=== PATIENT | female | born 1980 | race Caucasian/White ===

== ENCOUNTER 2024-07-12 12:44 | Inpatient (IN) | payer BC ==
[2024-07-12] MEDS ORDERED: MAG HYDROX/AL HYDROX/SIMETH 355 ML BOTTLE PO PRN (14:01)
[2024-07-12] MEDS ORDERED: LORazepam 2 MG/ML INJ IM PRN (14:01)
[2024-07-12] MEDS: LORazepam 1 MG TAB PO PRN (21:28)
[2024-07-12] MEDS: IBUPROFEN 600 MG TAB PO PRN (21:28)
[2024-07-12] MEDS: BUPRENORPHINE-NALOX 8-2 MG TAB 1 EACH TAB.SUBL SL SCH (23:30)
[2024-07-12] MEDS: NON FORMULARY DRUG (Buprenorphine-Nalox 8-2 Mg Tab 1 EACH Tablet) SUBLINGUAL SCH (23:38)
[2024-07-13] MEDS ORDERED: CEPHALEXIN 500 MG CAP PO SCH
[2024-07-13] MEDS: CEPHALEXIN 250 MG CAP PO SCH (03:00)
[2024-07-13] MEDS: ACETAMINOPHEN TAB 325 MG TAB PO PRN (03:00)
[2024-07-13] MEDS: NICOTINE 21MG/24HR PATCH TRANSDERM SCH (08:53)
[2024-07-13 09:47] LABS: Basophils % (A) 0 %; Eosinophils # (A) 0.1 k/uL (0-0.7); Eosinophils % (A) 1 %; HCT 44.5 % (34.0-46.0); Lymphocytes # (A) 2.6 k/uL (1.0-4.8); Lymphocytes % (A) 17 %; MCH 26.3 pg (25.0-35.0); MCHC 31.6 g/dL (31.0-37.0); MCV 83.3 fL (80.0-100.0); Mean Platelet Volume 7.1; Monocytes # (A) 0.5 k/uL (0-1.0); Monocytes % (A) 4 %; Neutrophils # (A) 11.5 k/uL (1.3-7.7); Neutrophils % (A) 77 %; Platelet Count 405 k/uL (150-450); RBC 5.34 m/uL (3.80-5.40); RDW 13.9 % (11.5-15.5); WBC 14.9 k/uL (3.8-10.6)
[2024-07-13 09:55] LABS: ALT 17 U/L (4-34); AST 21 U/L (14-36); African American GFR (CKD) >90 (>60 ml/min/1.73 sqM); Albumin 4.4 g/dL (3.5-5.0); Alkaline Phosphatase 61 U/L (38-126); Anion Gap 14 mmol/L; Bilirubin, Delta 0.1 mg/dL (0.0-0.2); Bilirubin,Unconjugated 0.4 mg/dL (0.0-1.1); Blood Urea Nitrogen 8 mg/dL (7-17); Calcium 9.2 mg/dL (8.4-10.2); Carbon Dioxide 23 mmol/L (22-30); Chloride 101 mmol/L (98-107); Glucose 164 mg/dL (74-99); Non-African American GFR(CKD) >90 (>60 ml/min/1.73 sqM); Potassium 3.6 mmol/L (3.5-5.1); Sodium 138 mmol/L (137-145); Total Bilirubin 0.5 mg/dL (0.2-1.3); Total Protein 7.3 g/dL (6.3-8.2)
[2024-07-13] MEDS: SERTRALINE 100 MG TAB PO SCH (11:58)
[2024-07-13] MEDS: lamoTRIgine 100 MG TAB PO SCH (11:58)
[2024-07-13] MEDS: NICOTINE GUM (POLACRILEX) 2 MG GUM BUCCAL PRN (11:59)
--- NOTE | 2024-07-13 13:18 | P.HP ---
Psychiatric H&P - . H&P Date: 07/13/24 History & Physical: Allergies Allergy/AdvReac Type Severity Reaction Status Date / Time No Known Allergies Allergy Verified 07/12/24 14:01 Vital Signs Temp 96.8 F L 07/12/24 21:19 Pulse 111 H 07/12/24 21:19 Resp 18 07/12/24 21:19 BP 134/93 07/12/24 21:19 Pulse Ox 98 07/12/24 21:19 FiO2 Intake & Output 07/12/24 07/13/24 07/13/24 18:59 06:59 18:59 Weight 88.64 kg 88.64 kg Laboratory Last Values WBC 14.9 k/uL (3.8-10.6) H 07/13/24 09:07 RBC 5.34 m/uL (3.80-5.40) 07/13/24 09:07 Hgb 14.0 gm/dL (11.4-16.0) 07/13/24 09:07 Hct 44.5 % (34.0-46.0) 07/13/24 09:07 MCV 83.3 fL (80.0-100.0) 07/13/24 09:07 MCH 26.3 pg (25.0-35.0) 07/13/24 09:07 MCHC 31.6 g/dL (31.0-37.0) 07/13/24 09:07 RDW 13.9 % (11.5-15.5) 07/13/24 09:07 Plt Count 405 k/uL (150-450) 07/13/24 09:07 MPV 7.1 07/13/24 09:07 Neutrophils % 77 % 07/13/24 09:07 Lymphocytes % 17 % 07/13/24 09:07 Monocytes % 4 % 07/13/24 09:07 Eosinophils % 1 % 07/13/24 09:07 Basophils % 0 % 07/13/24 09:07 Neutrophils # 11.5 k/uL (1.3-7.7) H 07/13/24 09:07 Lymphocytes # 2.6 k/uL (1.0-4.8) 07/13/24 09:07 Monocytes # 0.5 k/uL (0-1.0) 07/13/24 09:07 Eosinophils # 0.1 k/uL (0-0.7) 07/13/24 09:07 Basophils # 0.0 k/uL (0-0.2) 07/13/24 09:07 Sodium 138 mmol/L (137-145) 07/13/24 09:07 Potassium 3.6 mmol/L (3.5-5.1) 07/13/24 09:07 Chloride 101 mmol/L (98-107) 07/13/24 09:07 Carbon Dioxide 23 mmol/L (22-30) 07/13/24 09:07 Anion Gap 14 mmol/L 07/13/24 09:07 BUN 8 mg/dL (7-17) 07/13/24 09:07 Creatinine 0.64 mg/dL (0.52-1.04) 07/13/24 09:07 Est GFR (CKD-EPI)AfAm >90 (>60 ml/min/1.73 sqM) 07/13/24 09:07 Est GFR (CKD-EPI)NonAf >90 (>60 ml/min/1.73 sqM) 07/13/24 09:07 Glucose 164 mg/dL (74-99) H 07/13/24 09:07 Calcium 9.2 mg/dL (8.4-10.2) 07/13/24 09:07 Total Bilirubin 0.5 mg/dL (0.2-1.3) 07/13/24 09:07 Conjugated Bilirubin 0.0 mg/dL (0.0-0.3) 07/13/24 09:07 Unconjugated Bilirubin 0.4 mg/dL (0.0-1.1) 07/13/24 09:07 Delta Bilirubin 0.1 mg/dL (0.0-0.2) 07/13/24 09:07 AST 21 U/L (14-36) 07/13/24 09:07 ALT 17 U/L (4-34) 07/13/24 09:07 Alkaline Phosphatase 61 U/L (38-126) 07/13/24 09:07 Total Protein 7.3 g/dL (6.3-8.2) 07/13/24 09:07 Albumin 4.4 g/dL (3.5-5.0) 07/13/24 09:07 TSH 1.200 mIU/L (0.465-4.680) 07/13/24 09:07 07/13/24 13:08 IDENTIFYING DATA: Patient is a 43-year-old female, unemployed and living with and 2 children CHIEF COMPLAINT: SI with a plan HPI: Patient presented to the hospital with suicidal ideations. Per EPS, "Patient packet sent from central intake. Patient will be transferred from [facility]. Patient presented to [facility] related to suicidal ideation with suicide attempt to slit her right wrist. Per RN, patient laceration is from arm to elbow and was originally [id number]. Patient has been sutured and has a wrap/splint on her right arm." Patient seen and evaluated on the unit and was agreeable with speaking to personal lines underwriter in office. She states she has been dealing with severe anxiety for the past several months that is worsening to the point where she is not wanting to end her suffering. She describes anxiety as heart palpitations that occur daily and can last up to the entire day that impacts both sleep and appetite. She states she has received workup including EKG for these heart issues however everything has came back normal. In addition to palpitations, she describes dizziness, nausea, feeling weak with no overt triggers however she does fear about having another 1 anytime during the day. She expresses a dissatisfaction with the failed suicide attempt, stating she when she realized she was not going to bleed out she herself contacted the police. She reports in addition to sleep and appetite changes, low energy, poor concentration, anhedonia, racing thoughts and restlessness. She continues to report suicidal ideations, expressing a will to end her suffering. Patient denies any homicidal ideations intent or plan. At this time patient denies any auditory or visual hallucinations. Patient denies any flight of ideas racing thoughts and increased in goal directed behavior. Patient admits to using nicotine daily, last using alcohol 15 years ago and opiates 8 years ago. PAST PSYCHIATRIC HISTORY: Patient has a history of depression, anxiety. She is currently prescribed Zoloft 50 mg daily, Lamictal 100 mg daily. She reports 3 previous inpatient hospitalizations most recent being at [facility] in the fall 2022. She sees Dr. Hernandez at [facility]. She reports 3 previous suicide attempts. PMH: as per ER note ALLERGIES: as per EMR SUBSTANCE USE HISTORY: Patient currently only uses nicotine daily. She does have a history of alcohol and opiate abuse however no longer uses. She denies any cannabis use. FAMILY PSYCHIATRIC/SUBSTANCE USE HISTORY: Patient reports her mother had mental illness and completed suicide 12 years ago. SOCIAL HISTORY: Patient is and has 2 children and lives with her and kids. 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 MENTAL STATUS EXAM: General Appearance: Patient appears to be stated age is alert, directable, and attempts to cooperate. Patient appears to have fair hygiene and grooming. Behavior: Patient is seated without any agitated behavior. She is tearful Speech: Patient's speech is fluent and nonpressured. Mood/Affect: Patient reports their mood is depressed, affect is congruent and constricted. Suicidality/Homicidality: Patient denies having any homicidal ideation intent or plan. She does report suicidal ideations with a plan Perceptions: Patient denies any visual hallucinations and denies any auditory hallucinations Though content/process: There is no evidence of any delusional thought content and thought process is linear. Memory and concentration: AOX3, grossly intact for the purposes of this session. Can spell "WORLD" backwards Judgment and insight: Poor STRENGTHS/WEAKNESSES: strength is that patient is resilient and has a family to care for, no longer use substances. Weakness is that patient has poor judgment and is impulsive INTELLECT: Average IMPRESSIONS: Major depressive disorder, recurrent, severe Panic disorder Generalized anxiety disorder Nicotine dependence Opioid use disorder in remission Alcohol use disorder in remission PLAN: -Patient is admitted under voluntary status to [facility] for stabilization of psychiatric symptoms and safety. Patient has signed adult voluntary form and medication consent and is placed in patient's chart. -Medications : Increase Zoloft to 100 mg daily for depression/anxiety, start Remeron 7.5 mg at bedtime for sleep/appetite/mood, resume Lamictal 100 mg daily for mood stabilization -Ativan and Haldol PRN for agitation/aggression -Patient was informed of the risks, benefits and side effects of the medication and patient verbally consented to taking the medications. Patient signed med consent form and was placed in chart. -Internal Medicine consult to perform medical evaluation and physical. -NRT -nicotine patch -SW on board for discharge planning. Encourage patient to participate in groups to work on coping skills.
[2024-07-13] MEDS: MAGNESIUM HYDROXIDE 2,400 MG/30 ML CUP PO PRN (13:48)
[2024-07-13 15:16] LABS: Chol/HDL Ratio 5.34 Ratio; LDL Cholesterol,Calculated 138.2 mg/dL (0.0-131.0)
[2024-07-13] MEDS: MIRTAZAPINE 15 MG TAB PO SCH (22:05)
--- NOTE | 2024-07-14 14:28 | P.PN ---
Progress Note - Text Progress Note Date: 07/14/24 Interval History: Patient was seen wandering the hallways and was directable and agreeable to sp rayray with specification writer in the office. She expresses up-and-down mood with ongoing severe anxiety. She continues to experience hopelessness regarding to her ongoing suffering but did mention an improvement in terms of sleep and appetite. She continues to express suicidal thoughts, not worsening however not improved. Patient was intermittently tearful, blunted affect noted. She continues to mention palpitations but does mention an improvement in her symptoms with restarting the Zoloft and Lamictal. She has been attending groups, tending to her ADLs. She has concerns about medications causing sedation as she has to care for her 2 children. At this time patient denies any homicidal ideations, intent or plan. Patient denies any auditory, visual hallucinations and denies any paranoia or delusions. Patient denies any side effects from the medications and has been compliant with meds. Mental Status Exam: General Appearance: Patient appears to be stated age is alert, directable, and cooperative. She has a cast on her right arm Behavior: Patient is calmly seated without any agitated behavior. She is intermittently tearful Speech: Patient's speech is fluent and nonpressured. Mood/Affect: Mood is depressed, affect is congruent and blunted. Suicidality/Homicidality: Patient denies having any homicidal ideation intent or plan. Reports suicidal ideations with plan no intent Perceptions: Patient denies any visual hallucinations and denies any auditory hallucinations Though content/process: There is no evidence of any delusional thought content and thought process is linear and logical. Memory and concentration: AOX3, grossly intact for the purposes of this session Judgment and insight: Improving mildly Assessment Major depressive disorder, recurrent, severe Suicide attempt via cutting Panic disorder Generalized anxiety disorder Nicotine dependence Opioid use disorder in remission Alcohol use disorder in remission Plan: -Patient continues to meet criteria for inpatient psychiatric admission for symptom stabilization and safety. Patient has signed adult voluntary form and medication consent and was placed in patient's chart. -Medications: Continue Zoloft 100 mg daily for depression/anxiety, Remeron 7.5 mg at bedtime for sleep/appetite/mood, Lamictal 100 mg daily for mood stabilization, start BuSpar 10 mg twice daily for anxiety -When necessary Ativan and Haldol for agitation/aggression. -Labs: Reviewed -NRT -nicotine patch -SW on board for discharge planning. Encouraged the patient to participate in milieu.
[2024-07-14] MEDS: ONDANSETRON ODT 4 MG TAB PO PRN (18:47)
[2024-07-14] MEDS: busPIRone HCl 10 MG TAB PO SCH (22:04)
[2024-07-15] MEDS: ASPIRIN 81 MG PO SCH (08:09)
[2024-07-15] MEDS: SERTRALINE 50 MG TAB PO SCH (08:09)
[2024-07-15] MEDS: METOPROLOL TARTRATE 50 MG TAB PO SCH (08:09)
--- NOTE | 2024-07-15 10:53 | P.PN ---
Progress Note - Text Progress Note Date: 07/15/24 Interval History: Patient was seen wandering the hallways and was directable and agreeable to sp makk with handbook writer in the office. She continues to attend groups, tending to ADLs. She reports her mood as the same as yesterday however reports feeling a little bit more hopeful today. She does report improvement in terms of her palpitations and panic symptoms however did exhibited some overnight. Patient was motivated to attend counseling once discharged to continue to work through her past trauma and develop better coping skills. Patient does report suicidal ideations today, no plan or intent but does mention she has been actively challenging these thoughts when they arise. At this time patient denies any homicidal ideations, intent or plan. Patient denies any auditory, visual hallucinations and denies any paranoia or delusions. Patient has been compliant with meds, only reporting fatigue. Mental Status Exam: General Appearance: Patient appears to be stated age is alert, directable, and cooperative. She has a cast to her right arm with fair grooming and hygiene Behavior: Patient is calmly seated without any agitated behavior. She is intermittently tearful Speech: Patient's speech is fluent and nonpressured. Mood/Affect: Mood is improving mildly, affect is congruent and blunted. Suicidality/Homicidality: Patient denies having any homicidal ideation intent or plan. She reports suicidal ideations, no plan or intent Perceptions: Patient denies any visual hallucinations and denies any auditory hallucinations Though content/process: There is no evidence of any delusional thought content and thought process is linear and logical. Memory and concentration: AOX3, grossly intact for the purposes of this session Judgment and insight: Improving mildly Assessment Depressive disorder, recurrent, severe Suicide attempt via cutting Panic disorder Generalized anxiety disorder Nicotine dependence Opioid use disorder in remission Alcohol use disorder in remission Plan: -Patient continues to meet criteria for inpatient psychiatric admission for symptom stabilization and safety. Patient has signed adult voluntary form and medication consent and was placed in patient's chart. -Medications: Increase Zoloft to 150 mg daily today for depression/anxiety, continue Remeron 7.5 mg at bedtime for sleep/mood/appetite, Lamictal 100 mg daily for mood stabilization, BuSpar 10 mg twice daily for anxiety -When necessary Ativan and Haldol for agitation/aggression. -Labs: Reviewed -NRT -nicotine patch -SW on board for discharge planning. Encouraged the patient to participate in milieu.
--- NOTE | 2024-07-16 12:11 | P.PN ---
Progress Note - Text Progress Note Date: 07/16/24 Interval History: Patient was seen wandering the hallways and was directable and agreeable to sp rayray with fiction and nonfiction writer prose in the office. She mentions still dealing with moodiness and racing thoughts predominantly at nighttime however does report good sleep overnight. She reports some mild palpitations however does report significant improvement than previous encounters, worse at night. She mentions having some nausea yesterday however Zofran as needed has been helpful. She states her anxiety is down to a 6-7 today. She has been attending groups, tending to her ADLs. She does report suicidal ideations however mentions they are less intense than on admission, no plan or intent. At this time patient denies any homicidal ideations, intent or plan. Patient denies any auditory, visual hallucinations and denies any paranoia or delusions. Patient has been compliant with meds. Spoke to patient's to provide updates and address any unanswered questions. Mental Status Exam: General Appearance: Patient appears to be stated age is alert, directable, and cooperative. She has a cast on her right arm with fair grooming and hygiene Behavior: Patient is calmly seated without any agitated behavior. She is less tearful today Speech: Patient's speech is fluent and nonpressured. Mood/Affect: Mood is improving mildly, affect is congruent and flat. Suicidality/Homicidality: Patient denies having any homicidal ideation intent or plan. She does report suicidal ideations, lessening in severity Perceptions: Patient denies any visual hallucinations and denies any auditory hallucinations Though content/process: There is no evidence of any delusional thought content and thought process is linear and logical. Memory and concentration: AOX3, grossly intact for the purposes of this session Judgment and insight: Improving mildly Assessment Major depressive disorder, recurrent, severe Suicide attempt via cutting Panic disorder Generalized anxiety disorder Nicotine dependence Opioid use disorder in remission Alcohol use disorder in remission Plan: -Patient continues to meet criteria for inpatient psychiatric admission for symptom stabilization and safety. Patient has signed adult voluntary form and medication consent and was placed in patient's chart. -Medications: Increase BuSpar to 20 mg twice daily for anxiety, continue Zoloft 150 mg daily for depression/anxiety, Remeron 7.5 mg at bedtime for sleep/mood/appetite, Lamictal 100 mg daily for mood stabilization -When necessary Ativan and Haldol for agitation/aggression. -Labs: Reviewed -NRT -nicotine patch -SW on board for discharge planning. Encouraged the patient to participate in milieu.
[2024-07-16] MEDS: busPIRone HCl 10 MG TAB PO SCH (22:04)
--- NOTE | 2024-07-17 17:47 | P.PN ---
Subjective Progress Note Date: 07/17/24 Principal diagnosis: depression: Either major depression recurrent nonpsychotic severe or bipolar 2 Interval History: Patient was seen wandering the hallways and was directable and agreeable to speak with marketing copywriter in the office. She mentions still dealing with moodiness and racing thoughts predominantly at nighttime however does report good sleep overnightwhich she ascribes to the low- dose mirtazapine. Mirtazapine has very low cardiac side effects and she had the palpitations prior tothat. She is stillhaving some nausea however Zofran as needed has been helpful. She states her anxiety is down to a 6-7 today. She has been attending groups, tending to her ADLs. She does report suicidal ideations however mentions they are less intense than on admission, no plan or intent. At this time patient denies any homicidal ideations, intent or plan. Patient denies any auditory, visual hallucinations and denies any paranoia or delusions. Patient has been compliant with meds. Spoke to patient's to provide updates and address any unanswered questions. she says that her depression does fluctuate she does not describe any clear manic highs but the depression will come and then go and she is entirely sure why. Mental Status Exam:patient is cooperative good eye contact reasonable response times General Appearance: Patient appears to be stated age is alert, directable, and cooperative. She has a cast on her right arm with fair grooming and hygiene Behavior: Patient is calmly seated without any agitated behavior. She is less tearful today Speech: Patient's speech is fluent and nonpressured. Mood/Affect: Mood is improving mildly, affect is congruent and flat. Suicidality/Homicidality: Patient denies having any homicidal ideation intent or plan. She does report suicidal ideations, lessening in severity Perceptions: Patient denies any visual hallucinations and denies any auditory hallucinations Though content/process: There is no evidence of any delusional thought content and thought process is linear and logical. Memory and concentration: AOX3, grossly intact for the purposes of this session Judgment and insight: Improving mildly Assessment Major depressive disorder, recurrent, severe Suicide attempt via cutting Panic disorder Generalized anxiety disorder Nicotine dependence Opioid use disorder in remission Alcohol use disorder in remission Plan:no change for now but I think she needs to look into this possibility of mood swing more and maybe consider emphasizing the Lamictal backing off of the Zoloft and maybe another mood stabilizer to help with anxiety -Patient continues to meet criteria for inpatient psychiatric admission for symptom stabilization and safety. Patient has signed adult voluntary form and medication consent and was placed in patient's chart. -Medications: Increase BuSpar to 20 mg twice daily for anxiety, continue Zoloft 150 mg daily for depression/anxiety, Remeron 7.5 mg at bedtime for sleep/mood/appetite, Lamictal 100 mg daily for mood stabilization -When necessary Ativan and Haldol for agitation/aggression. -Labs: Reviewed -NRT -nicotine patch -SW on board for discharge planning. Encouraged the patient to participate in milieu. Objective - Vital Signs Vital signs: Vital Signs Temp 97.5 F L 07/17/24 09:18 Pulse 97 07/17/24 09:18 Resp 20 07/17/24 09:18 BP 119/87 07/17/24 09:18 Pulse Ox 98 07/16/24 22:03 FiO2 - Labs CBC & Chem 7: 07/13/24 09:07 07/13/24 09:07
--- NOTE | 2024-07-17 20:26 | P.MDCNMH ---
History of Present Illness H&P Date: 07/14/24 Patient is a 43-year-old female with history of major depressive disorder recurrent severe, panic disorder, generalized anxiety who presented for evaluation of suicidal ideations. Medicine was consulted for medical evaluation. Patient states he has history of palpitations secondary to anxiety for which she takes aspirin and metoprolol regularly. She also attest to having a cold 1 week ago and continues to have mild cough with some sputum production that has improved over time. She also had suicide attempt with laceration to right forearm which was sutured and wrap/splint placed. She denies fever, chest pain, shortness of breath, abdominal pain, weakness, dizziness, dysuria. Patient is afebrile, blood pressure 121/79, pulse 105, O2 saturation 99 % on room air. WBC 14.9, glucose 164, cholesterol 205, LDL 138, HDL 38 Social history: Patient uses tobacco daily. She denies alcohol with 15-year sobriety, and denies drug use with 9 years sobriety. Review of systems: Reviewed, pertinent positive negatives as per HPI Gen: In NAD, non-toxic HEENT: normocephalic, atraumatic, hearing acuity is intact, mucous membranes moist CVS: perfusing all extremities well, no pitting edema Respiratory: symmetric chest expansion, no accessory muscle use, right-sided inspiratory wheeze GI: soft, NTTP, ND : no suprapubic tenderness, no CVA tenderness MSK/Derm: Right forearm casted, no rashes, cyanosis Neuro: CN II-XII intact, no motor weakness Assessment/plan: #Right arm laceration Continue Keflex 250 mg every 6 hours #Recurrent palpitations associated with anxiety Resume home metoprolol and aspirin #Major depressive disorder, recurrent, severe #Panic disorder #Generalized anxiety disorder #Nicotine dependence -Management per primary psychiatry service Thank you for this consult, please reach out if any further questions/concerns. Past Medical History Additional Past Medical History / Comment(s): Tachycardia due to anxiety History of Any Multi-Drug Resistant Organisms: None Reported Past Surgical History: Orthopedic Surgery Additional Past Surgical History / Comment(s): Sx on 5th metacarpal, D&C x 2 post miscarages Past Anesthesia/Blood Transfusion Reactions: No Reported Reaction Past Psychological History: Anxiety, Bipolar Smoking Status: Current every day smoker Past Alcohol Use History: Abuse Additional Past Alcohol Use History / Comment(s): Sober 14 years Past Drug Use History: None Reported Medications and Allergies Home Medications Medication Instructions Recorded Confirmed Type Aspirin EC [Ecotrin Low Dose] 81 mg PO DAILY 07/12/24 07/12/24 History Cephalexin [Keflex] 500 mg PO Q6HR 07/12/24 07/12/24 History Metoprolol Tartrate [Lopressor] 50 mg PO DAILY 07/12/24 07/12/24 History Sertraline [Zoloft] 50 mg PO DAILY 07/12/24 07/12/24 History Ziprasidone [Geodon] 40 mg PO DAILY 07/12/24 07/12/24 History cefaDROXiL [Duricef] 500 mg PO Q12H 07/12/24 07/12/24 History lamoTRIgine 100 mg PO DAILY 07/12/24 07/12/24 History Buprenorphine/Naloxone 8Mg/2Mg 1 film SL BID 07/13/24 07/13/24 History [Suboxone 8-2Mg Film] Allergies Allergy/AdvReac Type Severity Reaction Status Date / Time No Known Allergies Allergy Verified 07/12/24 14:01 Physical Exam Vitals: Vital Signs Temp Pulse BP Pulse Ox 07/14/24 06:54 97.8 F 105 H 121/79 99 Cranial Nerve Examination - Cranial Nerves Cranial Nerve II- Optic: Intact Cranial Nerve III- Oculomotor: Intact Cranial Nerve IV- Trochlear: Intact Cranial Nerve V- Trigeminal: Intact Cranial Nerve - Abducens: Intact Cranial Nerve VII- Facial: Intact Cranial Nerve VIII- Auditory: Intact Cranial Nerve IX- Glossopharyngeal: Intact Cranial Nerve X- Vagus: Intact Cranial Nerve XI- Accessory: Intact Cranial Nerve XII- Hypoglossal: Intact Results CBC & Chem 7: 07/13/24 09:07 07/13/24 09:07
--- NOTE | 2024-07-18 08:37 | P.PN ---
Subjective Progress Note Date: 07/18/24 Principal diagnosis: depression: Either major depression recurrent nonpsychotic severe or bipolar 2: Interval History: Patient got up and went to breakfast she said she slept well has a good appetite she feels that the current combination of medicines is starting to work while s he feels less anxious and didn't sleep well Objective: Patient had ongoing a while chart. She was normal and her affect no pressure no agitation cooperative good eye contact gait and station are normal no evidence of psychosis. Assessment Major depressive disorder, recurrent, severe rule out bipolar 2 Suicide attempt via cutting Panic disorder Generalized anxiety disorder Nicotine dependence Opioid use disorder in remission Alcohol use disorder in remission Plan:no change A she seems to be starting to get some benefit from the current combination I did remind her of the rules in regards to Lamictal that if one forgets it for 5 days one must not restart at a full dose -Patient continues to meet criteria for inpatient psychiatric admission for symptom stabilization and safety. Patient has signed adult voluntary form and medication consent and was placed in patient's chart. -Medications: Increase BuSpar to 20 mg twice daily for anxiety, continue Zoloft 150 mg daily for depression/anxiety, Remeron 7.5 mg at bedtime for sleep/mood/appetite, Lamictal 100 mg daily for mood stabilization -When necessary Ativan and Haldol for agitation/aggression. -Labs: Reviewed -NRT -nicotine patch -SW on board for discharge planning. Encouraged the patient to participate in milieu.outbursts and will be stage in the whole development of electronics. He is fascinated can makedelusions the never has what some Topamax if he did it all the patient beginning to realize is crazy and like a I listened to a discussion and knowledge is talking the patient and investigative writer. No work on that during my daughter said is okay listens to discussion my note to help combat that she do have one for get some things may kill any refill asleep Objective - Vital Signs Vital signs: Vital Signs Temp 97.5 F L 07/17/24 09:18 Pulse 101 H 07/18/24 08:05 Resp 20 07/17/24 09:18 BP 114/79 07/18/24 08:05 Pulse Ox 98 07/16/24 22:03 FiO2 - Labs CBC & Chem 7: 07/13/24 09:07 07/13/24 09:07
[2024-07-19] MEDS: lamoTRIgine 25 MG TAB PO SCH (09:39)
--- NOTE | 2024-07-19 12:47 | P.PN ---
Progress Note - Text Progress Note Date: 07/19/24 Interval History: Patient was seen in her room and was directable and agreeable to speak with wr iter in the office. She reports feeling "okay", still dealing with mood swings however does report the palpitations to be improved at nighttime. She reports an increase in appetite at night however and reports some sleep difficulties directly related to her roommate. She reports suicidal ideations however denies any intent or plan. Patient denies any homicidal ideations, intent or plan. Patient denies any auditory, visual hallucinations and denies any paranoia or delusions. Patient denies any side effects from the medications and has been compliant with meds. Mental Status Exam: General Appearance: Patient appears to be stated age is alert, directable, and cooperative. She wears a cast on her right arm with fair grooming and hygiene Behavior: Patient is calmly seated without any agitated behavior. Patient was not tearful today Speech: Patient's speech is fluent and nonpressured. Mood/Affect: Mood is improving mildly, affect is congruent and flat. Suicidality/Homicidality: Patient denies having any homicidal ideation intent or plan. She reports suicidal ideations, lessening in intensity Perceptions: Patient denies any visual hallucinations and denies any auditory hallucinations Though content/process: There is no evidence of any delusional thought content and thought process is linear and logical. Memory and concentration: AOX3, grossly intact for the purposes of this session Judgment and insight: Improving mildly Assessment Major depressive disorder, recurrent, severe Suicide attempt via cutting Panic disorder Generalized anxiety disorder Nicotine dependence Opioid use disorder in remission Alcohol use disorder in remission Plan: -Patient continues to meet criteria for inpatient psychiatric admission for symptom stabilization and safety. Patient has signed adult voluntary form and medication consent and was placed in patient's chart. -Medications: Increase Lamictal to 150 mg daily for mood stabilization, continue BuSpar 20 mg twice daily for anxiety, Zoloft 150 mg daily for depression/anxiety, Remeron 7.5 mg at bedtime for sleep/mood/appetite -When necessary Ativan and Haldol for agitation/aggression. -Labs: Reviewed -NRT -nicotine patch -SW on board for discharge planning. Encouraged the patient to participate in milieu. Anticipate discharge back home with on Friday
[2024-07-19] MEDS: hydrOXYzine pamoate 25 MG CAP PO SCH (21:53)
[2024-07-19] MEDS: MELATONIN 3 MG TABLET PO STA (23:46)
[2024-07-20] MEDS ORDERED: hydrOXYzine pamoate 25 MG CAP PO PRN ×2 (11:31→11:32)
--- NOTE | 2024-07-20 13:16 | P.PN ---
Progress Note - Text Progress Note Date: 07/20/24 Interval History: Patient was seen in her room and was directable and agreeable to speak with wr iter in the office. She states feeling "tired" today however does not report any sleep difficulties. Patient did appear more calm, more reactive and affect as she states not having any palpitations last night before bed. She is unsure if the hydroxyzine has been helpful or not. She has noticed her suicidal thoughts have completely calm down, goal oriented today. She denied any mood swings yesterday. At this time patient denies any suicidal or homicidal ideations, intent or plan. Patient denies any auditory, visual hallucinations and denies any paranoia or delusions. Patient denies any side effects from the medications and has been compliant with meds. Spoke to patient's Rosales and addressed all his concerns and questions. He was encouraged to put up the kitchen knives and he states he will be monitoring the patient closely for the next few days while he is off of work. Patient was encouraged to open up more to her has expressed difficulties with this at home. Mental Status Exam: General Appearance: Patient appears to be stated age is alert, directable, and cooperative. She has fair grooming and hygiene Behavior: Patient is calmly seated without any agitated behavior. Speech: Patient's speech is fluent and nonpressured. Mood/Affect: Mood is improving mildly, affect is congruent and more reactive. Suicidality/Homicidality: Patient denies having any suicidal or homicidal ideation intent or plan. Perceptions: Patient denies any visual hallucinations and denies any auditory hallucinations Though content/process: There is no evidence of any delusional thought content and thought process is linear and goal-directed. Memory and concentration: AOX3, grossly intact for the purposes of this session Judgment and insight: Improving mildly Assessment Major depressive disorder, recurrent, severe Suicide attempt via cutting Panic disorder Generalized anxiety disorder Nicotine dependence Opioid use disorder in remission Alcohol use disorder in remission Plan: -Patient continues to meet criteria for inpatient psychiatric admission for symptom stabilization and safety. Patient has signed adult voluntary form and medication consent and was placed in patient's chart. -Medications: Continue Lamictal 150 mg daily for mood stabilization, BuSpar 20 mg twice daily for anxiety, Zoloft 150 mg daily for depression/anxiety, Remeron 7.5 mg at bedtime for sleep/mood/appetite -When necessary Ativan and Haldol for agitation/aggression. -Labs: Reviewed -NRT -nicotine patch -SW on board for discharge planning. Encouraged the patient to participate in milieu. Anticipate discharge back home with tomorrow
[2024-07-21 09:39] VITALS: BP 123/81; PULSE 107; RESP 18; TEMP 97.5
--- NOTE | 2024-07-21 12:29 | P.DS ---
Providers Date of admission: 07/12/24 21:12 Expected date of discharge: 07/21/24 Attending physician: Jayna Mckeon MD Consults: 07/12/24 14:01 Consult Physician Routine Consulting Provider: Rufino Manzano Consult Reason/Comments: History and Physical, New Admission Do you want consulting provider notified?: Yes Primary care physician: Jitendra Langston - Discharge Diagnosis(es) (1) Major depressive disorder, recurrent severe without psychotic features Current Visit: Yes Status: Acute Priority: High (2) Suicide attempt by cutting of wrist Current Visit: Yes Status: Acute Priority: High (3) Panic disorder Current Visit: Yes Status: Acute Priority: High (4) Generalized anxiety disorder Current Visit: Yes Status: Acute Priority: Medium (5) Nicotine dependence Current Visit: Yes Status: Acute Priority: Low (6) Opioid use disorder in remission Current Visit: Yes Status: Chronic Priority: Low (7) Alcohol use disorder in remission Current Visit: Yes Status: Chronic Priority: Low Hospital Course: Admission HPI: Admission note was completed by proposal manager writer "Patient presented to the hospital with suicidal ideations. Per EPS, "Patient packet sent from central intake. Patient will be transferred from [facility]. Patient presented to [facility] related to suicidal ideation with suicide attempt to slit her right wrist. Per RN, patient laceration is from arm to elbow and was originally [id number]. Patient has been sutured and has a wrap/splint on her right arm." Patient seen and e valuated on the unit and was agreeable with speaking to proposal manager writer in office. She states she has been dealing with severe anxiety for the past several months that is worsening to the point where she is not wanting to end her suffering. She describes anxiety as heart palpitations that occur daily and can last up to the entire day that impacts both sleep and appetite. She states she has received workup including EKG for these heart issues however everything has came back normal. In addition to palpitations, she describes dizziness, nausea, feeling weak with no overt triggers however she does fear about having another 1 anytime during the day. She expresses a dissatisfaction with the failed suicide attempt, stating she when she realized she was not going to bleed out she herself contacted the police. She reports in addition to sleep and appetite changes, low energy, poor concentration, anhedonia, racing thoughts and restlessness. She continues to report suicidal ideations, expressing a will to end her suffering. Patient denies any homicidal ideations intent or plan. At this time patient denies any auditory or visual hallucinations. Patient denies any flight of ideas racing thoughts and increased in goal directed behavior. Patient admits to using nicotine daily, last using alcohol 15 years ago and opiates 8 years ago." Hospital course: Upon admission to the unit patient was directable and agreeable to commence treatment and signed adult voluntary form.. Patient got along well with other patients on the unit and followed unit protocol. Patient was compliant with the medications and denied any side effects throughout hospital course. Patient was started on Zoloft and this was increased to 150 mg daily for depression/anxiety, Lamictal was increased to 150 mg daily for mood stabilization, BuSpar increased to 20 mg twice daily for anxiety, Remeron 7.5 mg at bedtime for sleep/mood/appetite. Patient spoke of her stressors and engaged in therapy both group and individual. Patient was also seen by medical team for history and physical exam. Throughout the course of the hospitalization patient gradually improved with regards to mood, anxiety, sleep and became more future oriented with improved insight and judgment. On the day of discharge patient denied any suicidal or homicidal ideations intent or plan denied any auditory or visual hallucinations. The patient denied any access to guns or weapons. Patient denied any paranoia and did not endorse any delusions. Patient does not have a significant history of substance abuse and was counseled on abstaining from all substances including alcohol and marijuana. Patient was also counseled on the medications and need for regular compliance and was encouraged to follow-up with their outpatient appointment for mental health and also for primary care. Prior to discharge a family meeting will be arranged by social services technician to answer any questions and ensure safety upon discharge including making sure that gu ns/weapons are either removed from the home or locked away. Patient to be discharged back home with and will follow-up with Dr. Reyes Mental status exam: General Appearance: Patient appears to be stated age is alert, pleasant, and cooperative. Patient is in no acute distress and has good hygiene and grooming. She has a cast on her right arm Behavior: Patient is calmly seated without any agitated behavior. Speech: Patient's speech is fluent and nonpressured. Mood/Affect: Patient reports their mood is "better", affect is congruent and euthymic. Suicidality/Homicidality: Patient denies having any suicidal or homicidal ideation intent or plan. Perceptions: Patient denies any auditory or visual hallucinations. Though content/process: There is no evidence of any delusional thought content and thought process is linear and goal-directed. More future oriented Memory and concentration: AOX3, grossly intact for the purposes of this session. Can spell "WORLD" backwards correctly. Judgment and insight: Fair Impression: Major depressive disorder, recurrent, severe Suicide attempt via cutting Panic disorder Generalized anxiety disorder Nicotine dependence Opioid use disorder in remission Alcohol use disorder in remission Plan: -Continue with discharge today as patient has improved and stabilized psychiatrically and is not currently an imminent threat to themself and/or others. -Continue medications: Lamictal 150 mg daily, BuSpar 20 mg twice daily, Zoloft 150 mg daily, Remeron 7.5 mg at bedtime -Patient was counseled on the need for medication compliance and appropriate follow-up at mental health and also primary care for medical issues. Patient verbalized understanding and agreed. -Social work to help coordinate patients discharge today arrange for and conduct family meeting to ensure safety upon discharge and answer any questions/concerns. also to ensure safe home environment that guns/weapons are either removed from the home or locked away. Social work also to arrange for patients follow up appointments with Dr. Reyes for psychiatric care along with follow up with primary care provider. -Patient counseled on abstaining from recreational drugs and marijuana and alcohol. Was informed/educated on the adverse effects on their physical and mental health. Patient verbally agreed and understood. -Patient was instructed to return to the hospital or seek immediate medical care if their psychiatric or medical symptoms do worsen or reoccur. Abnormal Labs 07/13/24 07/13/24 09:07 09:07 WBC 14.9 H Neutrophils # 11.5 H Glucose 164 H Cholesterol 205.00 H LDL Cholesterol, Calc 138.2 H HDL Cholesterol 38.40 L Vital Signs Temp 97.5 F L 07/21/24 08:18 Pulse 107 H 07/21/24 08:18 Resp 18 07/21/24 08:18 BP 123/81 07/21/24 08:18 Pulse Ox 99 07/21/24 08:18 FiO2 Allergies Allergy/AdvReac Type Severity Reaction Status Date / Time No Known Allergies Allergy Verified 07/12/24 14:01 Patient Condition at Discharge: Stable Plan - Discharge Summary Discharge Rx Participant: Yes New Discharge Prescriptions: New Nicotine 21Mg/24Hr Patch [Habitrol] 1 patch TRANSDERM DAILY patch lamoTRIgine [LaMICtal] 100 mg PO DAILY 30 Days #30 tab Nicotine Gum (Polacrilex) [Nicorette] 2 mg BUCCAL Q4HR PRN pieceofgum PRN Reason: Nicotine Cravings Sertraline [Zoloft] 150 mg PO DAILY 30 Days #90 tab busPIRone HCl [Buspar] 20 mg PO BID 30 Days #120 tab lamoTRIgine [LaMICtal] 50 mg PO DAILY 30 Days #30 tab Mirtazapine [Remeron] 7.5 mg PO HS 30 Days #15 tab Buprenorphine-Nalox 8-2 mg Tab [Suboxone 8-2 mg Tab] 1 each SL BID tab hydrOXYzine pamoate [Vistaril] 25 mg PO Q6HR PRN 30 Days #60 cap PRN Reason: Anxiety Continue Metoprolol Tartrate [Lopressor] 50 mg PO DAILY 30 Days #30 tab Aspirin EC [Ecotrin Low Dose] 81 mg PO DAILY Buprenorphine/Naloxone 8Mg/2Mg [Suboxone 8-2Mg Film] 1 film SL BID Discontinued Sertraline [Zoloft] 50 mg PO DAILY Cephalexin [Keflex] 500 mg PO Q6HR lamoTRIgine 100 mg PO DAILY cefaDROXiL [Duricef] 500 mg PO Q12H Ziprasidone [Geodon] 40 mg PO DAILY Discharge Medication List Aspirin EC [Ecotrin Low Dose] 81 mg PO DAILY 07/12/24 [History] Buprenorphine/Naloxone 8Mg/2Mg [Suboxone 8-2Mg Film] 1 film SL BID 07/13/24 [History] Buprenorphine-Nalox 8-2 mg Tab [Suboxone 8-2 mg Tab] 1 each SL BID tab 07/21/24 [Rx] Metoprolol Tartrate [Lopressor] 50 mg PO DAILY 30 Days #30 tab 07/21/24 [Rx] Mirtazapine [Remeron] 7.5 mg PO HS 30 Days #15 tab 07/21/24 [Rx] Nicotine 21Mg/24Hr Patch [Habitrol] 1 patch TRANSDERM DAILY patch 07/21/24 [Rx] Nicotine Gum (Polacrilex) [Nicorette] 2 mg BUCCAL Q4HR PRN pieceofgum 07/21/24 [Rx] Sertraline [Zoloft] 150 mg PO DAILY 30 Days #90 tab 07/21/24 [Rx] busPIRone HCl [Buspar] 20 mg PO BID 30 Days #120 tab 07/21/24 [Rx] hydrOXYzine pamoate [Vistaril] 25 mg PO Q6HR PRN 30 Days #60 cap 07/21/24 [Rx] lamoTRIgine [LaMICtal] 50 mg PO DAILY 30 Days #30 tab 07/21/24 [Rx] lamoTRIgine [LaMICtal] 100 mg PO DAILY 30 Days #30 tab 07/21/24 [Rx] Follow up Appointment(s)/Referral(s): [facility] [Other] - 07/22/24 2:30 pm (07/22 @ 14:[address] Dianne Aguilar 08/17 @ 18:[address] Dianne Aguilar ) Jitendra Langston MD [Primary Care Provider] - 1 Week Patient Instructions/Handouts: How to Stop Smoking (DC), Depression (DC), Generalized Anxiety Disorder (GEN) Activity/Diet/Wound Care/Special Instructions: [facility] Discharge Info Avoid the use of street drugs and alcohol. Take all medications as prescribed. When you are in need of refills on your medications, please contact your outpatient medical provider and/or outpatient psychiatrist. Please go to your scheduled outpatient appointments for aftercare treatment. If symptoms return or become worse, call the crisis line at or and/or visit the nearest emergency room for assistance. National Suicide and Crisis Lifeline - call or text 662 Discharge Disposition: HOME SELF-CARE
== END 2024-07-21 14:00 | disposition home or self-care (01) | DRG 885 ==
LOC: 3MHU 21:12
PROVIDERS: ADMIT Psychiatry & Neurology Psychiatry; ATTEND Psychiatry & Neurology Psychiatry
DX: F33.2 Major depressive disorder, recurrent severe without psychotic features (principal); F10.11 Alcohol abuse, in remission; S51.811A Laceration without foreign body of right forearm, initial encounter; S61.511A Laceration without foreign body of right wrist, initial encounter; F11.11 Opioid abuse, in remission; X78.9XXA Intentional self-harm by unspecified sharp object, initial encounter; F41.1 Generalized anxiety disorder; F41.0 Panic disorder [episodic paroxysmal anxiety]; Z79.82 Long term (current) use of aspirin; Z79.899 Other long term (current) drug therapy; Z91.51 Personal history of suicidal behavior
CPT/HCPCS: 80053; 80061; 82248; 83036; 84443; 85025